=== PATIENT | male | born 1980 | race Caucasian/White ===

== ENCOUNTER 2019-05-11 12:44 | Emergency (ER) | payer MEDICAID ==
[~2019-05-11] VITALS: Ht 175.3 cm; Wt 61.2 kg
[2019-05-11 12:58] VITALS: BP 124/79
[2019-05-11] MEDS ORDERED: NACL 0.9% 1,000 ML IV ONE (13:05)
[2019-05-11 13:50] LABS: BASOPHILS % (AUTO) 0.1 % (0.0-2.0); EOSINOPHILS % (AUTO) 0.1 % (0.0-4.0); HEMATOCRIT 40.4 % (36-52); HEMOGLOBIN 13.4 g/dL (12.0-18.0); LYMPHOCYTES % (AUTO) 10.3 % (20.5-51.1); MEAN CORPUSCULAR HEMOGLOBIN 30 pg (27-31); MEAN CORPUSCULAR HGB CONC 33 g/dL (33-37); MONOCYTES # (AUTO) 0.2 K/uL (0.8-1.0); MONOCYTES % (AUTO) 2.5 % (1.7-9.3); NEUTROPHILS # (AUTO) 8.3 K/uL (1.8-7.7); PLATELET COUNT (AUTO) 237 K/uL (140-450); RED BLOOD CELL COUNT(AUTO) 4.54 MIL/uL (4.20-6.10); RED CELL DISTRIBUTION WIDTH 14.2 % (11.6-13.7); WHITE BLOOD COUNT (AUTO) 9.6 K/uL (4.8-10.8)
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
--- NOTE | 2019-05-11 15:37 | NUR ---
PT SLEEPING COMFORTABLTY IN HIS BED. NO S/SX OF INAPPROPRAITE BEHAVIOR OBSERVED. PT APPEARS CALM AND COOPERATIVE. WILL CONTINUE TO MONITOR PT.
[2019-05-11 16:21] LABS: CHLORIDE 102 mmol/L (98-107); CREATININE 1.1 mg/dL (0.7-1.3); GFR ARICAN-AMERICAN 97 mL/min (>90); GLUCOSE 95 mg/dL (74-106); SODIUM SERUM 140 mmol/L (136-145); UREA NITROGEN, BLOOD 12 mg/dL (7-18)
[2019-05-11 16:23] LABS: BARBITURATE, URINE NEG. ng/ml (NEG <=200); BENZODIAZEPINE, URINE NEG. ng/mL (NEG <=200); CANNABINOID, URINE POS. ng/mL (NEG <=50); COCAINE, URINE NEG. ng/mL (NEG <=300); OPIATE, URINE NEG. ng/mL (NEG <=2000); PHENCYCLIDINE SCREEN,URINE NEG. ng/mL (NEG <=25)
[2019-05-11 16:27] LABS: ALBUMIN 3.9 g/dL (3.4-5.0); ASPARTATE AMINOTRANSFERASE 22 U/L (15-37); SALICYLATE < 2.8 mg/dL (2.8-20.0)
[2019-05-11 16:28] LABS: ACETAMINOPHEN < 0.5 ug/ml (10-30)
--- NOTE | 2019-05-11 16:42 | NUR ---
CHECKED ON PT. RESTING COMFORTABLY IN HIS BED. NO S/SX OF DISTRESS NOTED .
[2019-05-11] MEDS ORDERED: POTASSIUM CHLORIDE 10 MEQ TABER PO ONE (16:50)
--- NOTE | 2019-05-11 16:55 | NUR ---
PATIENT REFUSED ORDERED KDUR. EXPLAINED INDICATION FOR KDUR. PT MUMBLING ABOUT "WITCHES" AND "YELLOW PILLS". EXPLAINED THAT THE YELLOW PILLS ARE POTASSIUM. PATIENT CONTINUES TO REFUSE. ENDORSED TO PRIMARY RN DAGOBERTO.
--- NOTE | 2019-05-11 17:00 | NUR ---
TRIED TO MEDICATE PT WITH K-DUR. INFORMED HIM THAT HIS POTASSIUM IS LOW, NEEDS SUPPLEMENT. DENIES, DR MAYO MADE AWARE. OK IF PT REFUSED MED.
--- NOTE | 2019-05-11 17:20 | NUR ---
PATIENT PROVIDED WITH HOMELESS FOOD PACKET, HOMELESS RESOURCES, AND CLOTHING. DOES NOT WANT BUS PASS. WANTS TO BE DC TO THE STREETS, UNSPECIFIED LOCATION. HOMELESS WAIVER SIGNED.
--- NOTE | 2019-05-11 17:22 | NUR ---
Patient discharged with v/s stable. Written and verbal after care instructions given and explained. Patient verbalized understanding. Ambulatory with steady gait. All questions addressed prior to discharge. Advised to follow up with PMD.
[2019-05-11 17:23] VITALS: BP 124/79
== END 2019-05-11 17:22 | disposition home or self-care (01) ==
LOC: EDBD 12:44 → MED 12:44
DX: E87.6 Hypokalemia (principal); F55.8 Abuse of other non-psychoactive substances; F19.10 Other psychoactive substance abuse, uncomplicated; F15.10 Other stimulant abuse, uncomplicated
CPT/HCPCS: 36415; 80053; 80305; 81002; 85025; 93005; 96360; 99284; G0480; G0482; J7030